=== PATIENT | female | born 1970 | race Caucasian/White ===

== ENCOUNTER 2016-09-06 21:30 | Emergency (ER) | payer OTHER ==
--- NOTE | 2016-09-06 21:55 | ED Physician Documentation ---
General Adult - HISTORIAN Historian: patient - HPI Stated Complaint: CP Chief Complaint: General Adult Additional Information: Sudden onset CP 2 hours ago while cooking supper. Pain is stabbing and was epigastric. Now goes higher, but does not otherwise radiate. Feels SOB. Pulse ox 99% on ambient air. Discharged from [facility] on 09/02 where she had been hospitalized forr LLE DVT and PE's. On Xarelto since. - ROS CONST: no problems - PAST HX Past History: none (except as above) Allergies/Adverse Reactions: Allergies Allergy/AdvReac Type Severity Reaction Status Date / Time codeine [Codeine] Allergy Verified 09/06/16 22:31 Home Medications: Ambulatory Orders Medication Instructions Recorded Bupropion HCl [Wellbutrin Sr] 150 mg PO QDAY 09/06/16 NICOTINE 14mg [HABITROL 14mg] 1 each TD QD 09/06/16 Omeprazole 20 mg PO QDAY 09/06/16 Ondansetron HCl Rapdis [Zofran Odt] 4 mg PO Q8 09/06/16 Oxycodone HCl [Roxicodone] 5 mg PO Q6 PRN 09/06/16 Rivaroxaban [Xarelto] 15 mg PO BID 09/06/16 - SOCIAL HX Smoking History: cigarettes (1 PPD till a few days ago. wearing nicotine patch right arm) - FAMILY HX Family History: No - VITAL SIGNS Vital Signs: Vital Signs Temp Pulse Resp BP Pulse Ox 164/62 11/23/15 05:19 - REVIEWED ASSESSMENTS Nursing Assessment Reviewed: Yes Vitals Reviewed: Yes Progress - Progress Progress: EKG: sinus rhythm, 68 BPM, no acute ischemic changes Computed tomography of the chest History: Shortness of breath and chest pain. Recent diagnosis of acute pulmonary embolism. Findings: Transverse chest sections are obtained after 89 mL intravenous omnipaque comparison studies have not been provided. A 9.4 x 4 x 3.3 cm left pericardial cyst present. Heart size is normal. Pulmonary emboli are observed in the distal right pulmonary artery with extension into the right upper lobe. Smaller emboli are observed in proximal bilateral lower lobe pulmonary arteries and minimally in the left upper lobe. There is no evidence of right ventricular strain. Minimal peripheral groundglass infiltrate may represent pulmonary infarction anteriorly in the left upper lobe. There is no pleural effusion. Abdomen sections reveal no additional abnormalities. Impression: 1. Bilateral acute pulmonary embolism without right ventricular strain. 2. Minimal left upper lobe groundglass infiltrate versus pulmonary infarcts. 3. Left pericardial cyst. Electronically signed on Sep 06, 2016 10:55:46 PM CDT by: Yovany Villareal [id number], Pt accepted for transfer to [facility] ER per Dr. Berry. Pain much improved after morphine, with pain from 10 to 4. SOB improved. ED Results Lab/Radiology - Orders Orders: ED Orders Category Date Time Status Continuous EKG monitoring Q1H Care 09/06/16 21:42 Active Continuous Pulse Oximetry Q1H Care 09/06/16 21:[address] Saline Lock/IV Now Care 09/06/16 21:42 Active CHEST 2 VIEW [CHEST P.A.&LAT 2 VIEWS] [RAD] Stat Exams 09/06/[address] CHEST W & W/O CONTRAST Stat Exams 09/06/16 Ordered CBC/PLATELET/DIFF Routine Lab 09/06/16 Ordered CMP Routine Lab 09/06/16 Ordered PT-INR Routine Lab 09/06/16 Ordered TROPONIN I (cTnI) Stat Lab 09/06/16 Ordered URINALYSIS Routine Lab 09/06/16 Ordered 0.9 % Sodium Chloride [Normal Saline] 1,000 ml Med 09/06/16 22:00 Ordered IV Q5H EKG WITH COMPARISON Stat Ther 09/06/16 Ordered General Adult Physical Exam - PHYSICAL EXAM GENERAL APPEARANCE: moderate distress EENT: eye inspection normal, ENT inspection normal, pharynx normal (Mallampati 2 ), other (poor dentition with multiple cavities) NECK: normal inspection, supple RESPIRATORY: breath sounds normal CVS: reg rate & rhythm, heart sounds normal ABDOMEN: soft, normal bowel sounds, non-tender RECTAL: deferred BACK: normal inspection, no CVA tenderness, other (no midline tenderness) SKIN: warm/dry, normal color EXTREMITIES: no evidence of injury NEURO: CN's nml as tested, motor nml, sensation nml, cognition normal Discharge Clincal Impression: Acute chest pain, Pulmonary emboli Home Medications: Ambulatory Orders Bupropion HCl [Wellbutrin Sr] 150 mg PO QDAY 09/06/16 NICOTINE 14mg [HABITROL 14mg] 1 each TD QD 09/06/16 Omeprazole 20 mg PO QDAY 09/06/16 Ondansetron HCl Rapdis [Zofran Odt] 4 mg PO Q8 09/06/16 Oxycodone HCl [Roxicodone] 5 mg PO Q6 PRN 09/06/16 Rivaroxaban [Xarelto] 15 mg PO BID 09/06/16 Condition: Fair Disposition: 02 XFER SHT-TRM HOSP Decision to Admit: NO ([id number]) Decision Time: 23:22
[2016-09-06] MEDS ORDERED: MORPHINE SULFATE 4 MG/ML DISP.SYRIN IVP ONE ×2 (21:57→23:37)
[2016-09-06] MEDS ORDERED: ONDANSETRON HCL/PF 4 MG/ 2ML VIAL IVP ONE (21:57)
[2016-09-06] MEDS ORDERED: 0.9 % SODIUM CHLORIDE 1,000 ML IV SCH (22:00)
[2016-09-06] MEDS ORDERED: 0.9 % SODIUM CHLORIDE 1,000 ML IV ONE ×2 (22:01→22:18)
[2016-09-06 22:56] LABS: BASOPHILS % 0.6 (0.0-1.5); EOSINOPHILS % 3.7 % (0.0-6.8); MEAN CORPUSCULAR HEMOGLOBIN 27.4 pg (28.0-34.0); MEAN CORPUSCULAR VOLUME 86.7 fl (80.0-100.0); MONOCYTES % 7.4 % (0.0-11.0); NEUTROPHILS # 3.7 # k/uL (1.4-7.7)
[2016-09-06 23:09] LABS: eGFR (African) > 60; eGFR (Non-African) > 60
--- NOTE | 2016-09-07 00:52 | Diagnostic Imaging Report ---
[facility] [place] [facility] [id number] [facility] [address] [place], [place]. [address] Report Submission Date: Sep 06, 2016 10:55:46 PM CDT Patient Study Name: VISHNU OLSEN Date: Sep 06, 2016 10:32:04 PM CDT Modality Type: CT\SR Gender: F Description: CT CHEST W & W/O CONTR : 68 Institution: [facility] [place] [facility] Physician: ERIK PERSAUD - ER Computed tomography of the chest History: Shortness of breath and chest pain. Recent diagnosis of acute pulmonary embolism. Findings: Transverse chest sections are obtained after 89 mL intravenous omnipaque comparison studies have not been provided. A 9.4 x 4 x 3.3 cm left pericardial cyst present. Heart size is normal. Pulmonary emboli are observed in the distal right pulmonary artery with extension into the right upper lobe. Smaller emboli are observed in proximal bilateral lower lobe pulmonary arteries and minimally in the left upper lobe. There is no evidence of right ventricular strain. Minimal peripheral groundglass infiltrate may represent pulmonary infarction anteriorly in the left upper lobe. There is no pleural effusion. Abdomen sections reveal no additional abnormalities. Impression: 1. Bilateral acute pulmonary embolism without right ventricular strain. 2. Minimal left upper lobe groundglass infiltrate versus pulmonary infarcts. 3. Left pericardial cyst. Electronically signed on Sep 06, 2016 10:55:46 PM CDT by: Yovany CHONG
[2016-09-07 01:18] VITALS: BP 140/61
== END 2016-09-06 23:50 | disposition short-term general hospital (02) ==
LOC: ED 21:30
DX: R07.9 Chest pain, unspecified (principal); I26.99 Other pulmonary embolism without acute cor pulmonale
CPT/HCPCS: 71275; 80053; 84484; 85025; 85610; 93005; J2270; J2405; J7030; Q9966; 99283; 99284; S1016

== ENCOUNTER 2016-11-21 12:10 | Emergency (ER) | payer OTHER ==
[2016-11-21 12:17] VITALS: BP 130/64
[2016-11-21] MEDS: DIPH,PERTUSS(ACELL),TET VAC/PF 0.5 ML DISP.SYRIN IM ONE (12:45)
[2016-11-21] MEDS: LIDOCAINE/EPI/TETRACAINE 1 APPLIC SYRINGE TOP ONE (12:47)
--- NOTE | 2016-11-22 07:57 | ED Physician Documentation ---
General Adult - HISTORIAN Historian: patient - HPI Stated Complaint: cut self with knife while cooking Chief Complaint: Laceration/Recheck/Suture Additional Information: cut with right thenar eminence with knife cutting chicken Onset: minutes (30) Timing: still present Severity: moderate Modifying Factors: bleeding, on blood thinner Context: as above Quality: moderate Location: right thenar eminence Last known Well Code/Unknown Code: Known - ROS CONST: no problems EYES/ENT: none CVS/RESP: none GI/: none MS/SKIN/LYMPH: other (laceration right hand as noted above) NEURO/PSYCH: denies: headache, fainting, dizziness, tingling, numbness, difficulty walking, difficulty with speech, anxiety, depression - PAST HX Past History: A-Fib, other (depression) Other History: none Surgeries/Procedures: none Immunizations: tetanus Allergies/Adverse Reactions: Allergies Allergy/AdvReac Type Severity Reaction Status Date / Time codeine [Codeine] AdvReac Vomiting Verified 11/21/16 12:20 Home Medications: Ambulatory Orders Medication Instructions Recorded Bupropion HCl [Wellbutrin Sr] 150 mg PO QDAY 09/06/16 Rivaroxaban [Xarelto] 20 mg PO BID 09/06/16 - SOCIAL HX Smoking History: non-smoker Alcohol Use: none Drug Use: none - FAMILY HX Family History: No - VITAL SIGNS Vital Signs: Vital Signs Temp Pulse Resp BP Pulse Ox 62 20 130/64 99 11/21/16 13:39 11/21/16 13:39 11/21/16 12:13 11/21/16 13:39 - REVIEWED ASSESSMENTS Nursing Assessment Reviewed: Yes Vitals Reviewed: Yes Procedures Wound Location: upper extremity Wound Length: 3 cm Wound's Depth, Shape: into muscle, linear Wound Explored: no foreign body removed Betadine Prep?: No (surgical soap) Anesthesia: 2% Lidocaine Volume of Anesthetic: 10 cc Wound Debrided: none Wound Repaired With: sutures Suture Size/Type: 3:0, nylon Number of Sutures: 4 Layer Closure?: No Sterile Dressing Applied?: Yes Splint Applied?: No Sling Applied?: No Progress - Results/Orders Results/Orders: no testing ordered - Progress Progress: well tolerated, no complication, blood loss moderate, given adacel Critical Care Note - Critical Care Note Total Time (mins): 0 ED Results Lab/Radiology - Lab Results Lab Results: none ordered - Radiology Radiology Impressions: none ordered - Orders Orders: ED Orders Category Date Time Status Diph,Pertuss(Acell),Tet Vac/Pf [Adacel] Med 11/21/16 12:37 Discontinued 0.5 ml IM .ONCE ONE Lidocaine/Epi/Tetracaine [L.e.t] Med 11/21/16 12:37 Discontinued 1 applic TOP NOW ONE General Adult Physical Exam - PHYSICAL EXAM GENERAL APPEARANCE: mild distress EENT: eye inspection normal, ENT inspection normal, pharynx normal, no signs of dehydration, CLAUDIA NECK: normal inspection, thyroid normal RESPIRATORY: no resp distress, chest non-tender, breath sounds normal CVS: irregularly irregular rhy ABDOMEN: soft, no organomegaly, normal bowel sounds, no distension, non-tender BACK: normal inspection, no CVA tenderness SKIN: other (3 cm laceration right thenar eminence) EXTREMITIES: normal range of motion, no edema NEURO: oriented X3, CN's nml as tested, motor nml, sensation nml, mood/affect nml, cognition normal Discharge Clincal Impression: Laceration Referrals: William Beltran MD [Primary Care Provider] - 2 Days Home Medications: Ambulatory Orders Bupropion HCl [Wellbutrin Sr] 150 mg PO QDAY 09/06/16 Rivaroxaban [Xarelto] 20 mg PO BID 09/06/16 Comments: home in stable condition with script for keflex 500 mg 2 p.o. bid x 5 days Condition: Stable Disposition: 01 HOME, SELF-CARE Decision to Admit: NO Decision Time: 13:30
== END 2016-11-21 13:41 | disposition home or self-care (01) ==
LOC: ED 12:10
DX: S61.011D Laceration without foreign body of right thumb without damage to nail, subsequent encounter (principal); W26.0XXD Contact with knife, subsequent encounter; Y93.9 Activity, unspecified; Y99.9 Unspecified external cause status
CPT/HCPCS: 12002; 90471; 90715; 99283